=== PATIENT | male | born 1950 | race Caucasian/White ===

== ENCOUNTER 2017-05-03 11:49 | Observation (INO) | payer OTHER ==
[~2017-05-03] VITALS: Ht 162.6 cm; Wt 68.0 kg
[~2017-05-03 11:49] MED LIST: ASPI81TA82 PO; CARV6.25 PO; CELE40TA PO; CLON.5 PO; MOBI7.5T PO; PRIL40CA PO; SIMV10TA PO
[2017-05-03 11:54] VITALS: BP 190/75; PULSE 78; RESP 16; TEMP 98.4; O2SAT 98
[2017-05-03 12:20] LABS: AUTOMATED NEUTROPHIL # 7.4 TH/MM3 (1.8-7.7); BASOPHIL # 0.1 TH/MM3 (0-0.2); EOSINOPHIL # 0.1 TH/MM3 (0-0.4); EOSINOPHIL % 1.2 % (0.0-4.0); HEMATOCRIT 38.2 % (39.0-51.0); HEMOGLOBIN 13.1 GM/DL (13.0-17.0); LYMPH % 17.7 % (9.0-44.0); LYMPHOCYTE # 1.8 TH/MM3 (1.0-4.8); MEAN CELL VOLUME 82.3 FL (80.0-100.0); MEAN CORPUSCULAR HEMOGLOBIN 28.3 PG (27.0-34.0); MEAN CORPUSCULAR HGB CONC 34.4 % (32.0-36.0); MEAN PLATELET VOLUME 7.3 FL (7.0-11.0); MONO % 8.5 % (0.0-8.0); MONOCYTE # 0.9 TH/MM3 (0-0.9); NEUT % 71.6 % (16.0-70.0); PLATELET COUNT 230 TH/MM3 (150-450); RED BLOOD COUNT 4.64 MIL/MM3 (4.50-5.90); RED CELL DISTRIBUTION WIDTH 15.2 % (11.6-17.2); WHITE BLOOD COUNT 10.4 TH/MM3 (4.0-11.0)
[2017-05-03 12:30] LABS: PROTHROMBIN TIME - PATIENT 10.6 SEC (9.8-11.6)
[2017-05-03] MEDS ORDERED: METH750T PO (12:36)
[2017-05-03] MEDS ORDERED: CALCTAB19 PO (12:36)
[2017-05-03] MEDS ORDERED: BUSP5TAB PO (12:36)
[2017-05-03] MEDS ORDERED: CARV3.12 PO (12:36)
[2017-05-03] MEDS ORDERED: OMEP20TA93 PO (12:36)
[2017-05-03] MEDS ORDERED: ATOR40TA16 PO (12:36)
[2017-05-03] MEDS ORDERED: ESCI10TA PO (12:36)
[2017-05-03] MEDS ORDERED: ACET300T2 PO (12:36)
[2017-05-03] MEDS ORDERED: ASPI81CH6 CHEW (12:36)
[2017-05-03] MEDS ORDERED: SERT-129 PO (12:36)
[2017-05-03] MEDS ORDERED: LISI10TA3 PO (12:36)
[2017-05-03] MEDS ORDERED: LORA0.5T PO (12:36)
[2017-05-03] MEDS ORDERED: FERR325T18 PO (12:36)
[2017-05-03] MEDS ORDERED: RANI150T PO (12:36)
[2017-05-03 12:37] LABS: BICARBONATE 26.6 MEQ/L (21.0-32.0); BLOOD UREA NITROGEN 16 MG/DL (7-18); CALCIUM 9.3 MG/DL (8.5-10.1); CHLORIDE 98 MEQ/L (98-107); CREATININE 1.32 MG/DL (0.60-1.30); GLOMERULAR FILTRATION RATE 54 ML/MIN (>89); GLUCOSE,RANDOM 103 MG/DL (74-106); SODIUM (NA) 133 MEQ/L (136-145)
[2017-05-03 12:41] LABS: TROPONIN I LESS THAN 0.02 NG/ML (0.02-0.05)
--- NOTE | 2017-05-03 12:48 | RADRPT ---
EXAM DATE/TIME: 05/03/2017 12:21 [place] COMPARISON: CHEST PA & LAT, June 01, 2015, 12:20. INDICATIONS : Left sided chest pain. MEDICAL HISTORY : Hiatal hernia. Cardiovascular disease. Gastroesophageal reflux disease. SURGICAL HISTORY : Cardiac stent. ENCOUNTER: Initial ACUITY: 1 day PAIN SCORE: 3/10 LOCATION: Left chest FINDINGS: Portable AP view of the chest demonstrates a normal-sized cardiac silhouette. The lungs demonstrate n o definite effusion, consolidation, or pneumothorax. The bones and soft tissues demonstrate no acute finding. EKG lines overlie the patient. CONCLUSION: No acute cardiopulmonary abnormality is identified. Baldev Woods MD on May 03, 2017 at 12:46 Board Certified Radiologist. This report was verified electronically.
--- NOTE | 2017-05-03 13:02 | PD ---
HPI Chief Complaint: Chest Pain Time Seen by Provider: 12:12 Travel History International Travel<30 days: No Contact w/Intl Traveler<30days: No Traveled to known affect area: No History of Present Illness HPI The patient is a 66-year-old male who presents emergency department for chest pain from his physician's office. The patient has a history of coronary artery disease, had a stent placed in the LAD approximately 11 years ago. The patient is followed at the [place] [facility] as well as by his primary physician, does not have a local adjuster arbitrator. However, the patient states she just was placed by Dr. Santiago. The patient does have a history of hypertension, hyperlipidemia, CAD, and remote tobacco use, however, quit in 1980. He denies any history of diabetes. Over the last 2 days he notes intermittent left-sided chest pain which only lasts several seconds, sharp, intermittent, not associated with any shortness of breath. He denies any nausea, vomiting, or diaphoresis. However, the patient states she was chest pain-free when he had his stents placed 11 years ago. PFSH Past Medical History Hx Anticoagulant Therapy: Yes (ASA 81MG) Anemia: Yes Arthritis: No Autoimmune Disease: No Blood Disorders: No Anxiety: Yes Depression: Yes Heart Rhythm Problems: No Cancer: Yes (SMALL BOWEL) Cardiac Catheterization: Yes Cardiovascular Problems: Yes High Cholesterol: Yes Chemotherapy: No Chest Pain: No Congestive Heart Failure: No Cerebrovascular Accident: No Coronary Artery Disease: Yes Diminished Hearing: No Endocrine: No Gastrointestinal Disorders: Yes GERD: Yes Glaucoma: No Genitourinary: No Headaches: Yes Hepatitis: No Hiatal Hernia: Yes Hypertension: Yes Inguinal Hernia: Yes Musculoskeletal: Yes (L SHOULDER TEAR AND BURSITIS) Neurologic: Yes Psychiatric: No Respiratory: No Myocardial Infarction: No Radiation Therapy: No Sickle Cell Disease: No Ulcer: Yes (DUODENAL ULCER) Tetanus Vaccination: Unknown Influenza Vaccination: Yes Past Surgical History Abdominal Surgery: Yes (HERNIA REPAIR -RIGHT) AICD: No Appendectomy: Yes () Cardiac Surgery: No Cholecystectomy: Yes () Coronary Stent: Yes (05/29/07-WIDOWMAKER) Ear Surgery: No Endocrine Surgery: No Eye Surgery: No Genitourinary Surgery: No Gynecologic Surgery: No Neurologic Surgery: No Oral Surgery: Yes (JAW WIRED) Pacemaker: No Thoracic Surgery: No Other Surgery: Yes (PARTIAL SMALL INTESTINE REMOVED) Social History Alcohol Use: No Tobacco Use: No Substance Use: No Allergies-Medications (Allergen,Severity, Reaction): Coded Allergies: No Known Allergies (Verified , 06/01/15) Reported Meds & Prescriptions Reported Meds & Active Scripts Active Reported Buspirone (Buspirone HCl) 5 Mg Tab 5 Mg PO BID Methocarbamol 750 Mg Tab 750 Mg PO Q8HR Lisinopril 10 Mg Tab 10 Mg PO DAILY Ferrous Sulfate 325 Mg (65 Mg Iron) Tablet 325 Mg PO BIDPC Carvedilol 3.125 Mg Tab 3.125 Mg PO BID Atorvastatin (Atorvastatin Calcium) 40 Mg Tab 40 Mg PO HS Aspirin Low Dose (Aspirin) 81 Mg Chew 81 Mg CHEW DAILY Acetaminophen-Codeine 300-30 mg Tab 1 Tab PO Q8HR Lorazepam 0.5 Mg Tab 0.5 Mg PO BID PRN Sertraline (Sertraline HCl) 100 Mg Tab 200 Mg PO DAILY Escitalopram (Escitalopram Oxalate) 10 Mg Tab 10 Mg PO DAILY Omeprazole 20 Mg Tab 20 Mg PO BID Ranitidine (Ranitidine HCl) 150 Mg Tab 150 Mg PO DAILY Calcium 600+D 200 (Calcium Carbonate-Vitamin D) 600-200 Mg-Unit Tab 1 Tab PO BID Review of Systems Except as stated in HPI: all other systems reviewed are Neg General / Constitutional: No: Fever HENT: No: Lightheadedness Cardiovascular: Positive: Chest Pain or Discomfort, No: Dyspnea on exertion Respiratory: No: Shortness of Breath Gastrointestinal: No: Nausea, Vomiting, Abdominal Pain Musculoskeletal: No: Weakness, Edema Neurologic: No: Dizziness Physical Exam Narrative GENERAL: Awake, alert, pleasant 66-year-old male who appears his stated age and is in no acute respiratory distress. SKIN: Focused skin assessment warm/dry. HEAD: Atraumatic. Normocephalic. EYES: Pupils equal and round. No scleral icterus. No injection or drainage. ENT: No nasal bleeding or discharge. Mucous membranes pink and moist. NECK: Trachea midline. No JVD. CARDIOVASCULAR: Regular rate and rhythm. No murmur appreciated. RESPIRATORY: No accessory muscle use. Clear to auscultation. Breath sounds equal bilaterally. GASTROINTESTINAL: Abdomen soft, non-tender, nondistended. No rebound tenderness. No guarding or rigidity. MUSCULOSKELETAL: No obvious deformities. No clubbing. No cyanosis. No edema. NEUROLOGICAL: Awake and alert. No obvious cranial nerve deficits. Motor grossly within normal limits. Normal speech. Nonfocal. PSYCHIATRIC: Appropriate mood and affect; insight and judgment normal. Data Data Last Documented VS Vital Signs Date Time Temp Pulse Resp B/P (MAP) Pulse Ox O2 Delivery O2 Flow Rate FiO2 05/03/17 12:08 80 98 Room Air 05/03/17 11:54 98.4 16 190/75 (113) Orders Orders Electrocardiogram (05/03/17 11:53) Complete Blood Count With Diff (05/03/17 11:53) Basic Metabolic Panel (Bmp) (05/03/17 11:53) Ckmb (Isoenzyme) Profile (05/03/17 11:53) Troponin I (05/03/17 11:53) Prothrombin Time / Inr (Pt) (05/03/17 11:53) Act Partial Throm Time (Ptt) (05/03/17 11:53) Chest, Single Ap (05/03/17 ) CKMB (05/03/17 12:00) CKMB% (05/03/17 12:00) Aspirin Chew (Aspirin Chew) (05/03/17 13:15) Labs Laboratory Tests Test 05/03/17 12:00 White Blood Count 10.4 TH/MM3 Red Blood Count 4.64 MIL/MM3 Hemoglobin 13.1 GM/DL Hematocrit 38.2 % Mean Corpuscular Volume 82.3 FL Mean Corpuscular Hemoglobin 28.3 PG Mean Corpuscular Hemoglobin Concent 34.4 % Red Cell Distribution Width 15.2 % Platelet Count 230 TH/MM3 Mean Platelet Volume 7.3 FL Neutrophils (%) (Auto) 71.6 % Lymphocytes (%) (Auto) 17.7 % Monocytes (%) (Auto) 8.5 % Eosinophils (%) (Auto) 1.2 % Basophils (%) (Auto) 1.0 % Neutrophils # (Auto) 7.4 TH/MM3 Lymphocytes # (Auto) 1.8 TH/MM3 Monocytes # (Auto) 0.9 TH/MM3 Eosinophils # (Auto) 0.1 TH/MM3 Basophils # (Auto) 0.1 TH/MM3 CBC Comment DIFF FINAL Differential Comment Prothrombin Time 10.6 SEC Prothromb Time International Ratio 1.0 RATIO Activated Partial Thromboplast Time 25.9 SEC Blood Urea Nitrogen 16 MG/DL Creatinine 1.32 MG/DL Random Glucose 103 MG/DL Calcium Level 9.3 MG/DL Sodium Level 133 MEQ/L Potassium Level 4.6 MEQ/L Chloride Level 98 MEQ/L Carbon Dioxide Level 26.6 MEQ/L Anion Gap 8 MEQ/L Estimat Glomerular Filtration Rate 54 ML/MIN Total Creatine Kinase 109 U/L Creatine Kinase MB 1.1 NG/ML Troponin I LESS THAN 0.02 NG/ML MDM Medical Decision Making Medical Screen Exam Complete: Yes Emergency Medical Condition: Yes Medical Record Reviewed: Yes Interpretation(s) EKG reveals sinus rhythm with a rate of 74. No ischemic changes or ectopy noted. Laboratory Tests Test 05/03/17 12:00 White Blood Count 10.4 TH/MM3 Red Blood Count 4.64 MIL/MM3 Hemoglobin 13.1 GM/DL Hematocrit 38.2 % Mean Corpuscular Volume 82.3 FL Mean Corpuscular Hemoglobin 28.3 PG Mean Corpuscular Hemoglobin Concent 34.4 % Red Cell Distribution Width 15.2 % Platelet Count 230 TH/MM3 Mean Platelet Volume 7.3 FL Neutrophils (%) (Auto) 71.6 % Lymphocytes (%) (Auto) 17.7 % Monocytes (%) (Auto) 8.5 % Eosinophils (%) (Auto) 1.2 % Basophils (%) (Auto) 1.0 % Neutrophils # (Auto) 7.4 TH/MM3 Lymphocytes # (Auto) 1.8 TH/MM3 Monocytes # (Auto) 0.9 TH/MM3 Eosinophils # (Auto) 0.1 TH/MM3 Basophils # (Auto) 0.1 TH/MM3 CBC Comment DIFF FINAL Differential Comment Prothrombin Time 10.6 SEC Prothromb Time International Ratio 1.0 RATIO Activated Partial Thromboplast Time 25.9 SEC Blood Urea Nitrogen 16 MG/DL Creatinine 1.32 MG/DL Random Glucose 103 MG/DL Calcium Level 9.3 MG/DL Sodium Level 133 MEQ/L Potassium Level 4.6 MEQ/L Chloride Level 98 MEQ/L Carbon Dioxide Level 26.6 MEQ/L Anion Gap 8 MEQ/L Estimat Glomerular Filtration Rate 54 ML/MIN Total Creatine Kinase 109 U/L Creatine Kinase MB 1.1 NG/ML Troponin I LESS THAN 0.02 NG/ML Differential Diagnosis Differential diagnosis includes acute coronary syndrome, STEMI, GERD, esophageal spasm, pleurisy, pneumonia, pulmonary embolism. Narrative Course IV was established, labs are drawn and sent, and the patient was placed on cardiac telemetry monitoring and continuous pulse oximetry monitoring. EKG was ordered and interpreted. Chest x-rays obtained. The patient did take 1 baby aspirin this morning, was administered another 162 mg of aspirin orally. Chest x-rays unremarkable. Initial troponin is negative. The patient does have multiple risk factors including hypertension, hyperlipidemia, age, and history of CAD with previous stent placement with atypical symptoms, he was asymptomatic but had elevated blood pressure at that time. Therefore, the patient will be 23 hour observation to the chest pain center for serial cardiac enzymes and further evaluation by cardiology. Physician Communication Physician Communication The patient will be 23 hour observation to the chest pain Center for serial cardiac enzymes and further evaluation by cardiology for possible stress test. Diagnosis Primary Impression: Chest pain Qualified Codes: R07.9 - Chest pain, unspecified Admitting Information Admitting Physician Requests: Observation Condition: Stable Oscar Mcknight MD May 03, 2017 13:02
[2017-05-03] MEDS ORDERED: ASPIRIN 81 MG CHEW TAB CHEW ONE (13:15)
[2017-05-03 13:41] VITALS: BP 131/90; PULSE 76; RESP 17; TEMP 97.8; O2SAT 98
--- NOTE | 2017-05-03 15:10 | HHI.HP ---
HPI Primary Care Physician [facility] Chief Complaint Chest pain History of Present Illness This is a 66-year-old male that presents to ED with history of hypertension and CAD with stent of LAD in 2007 with complaint of high blood pressure. Patient states his blood pressures been running high. He checked it the other day and it was 208. This concerned him. He went to the [facility] and was asked if he has any chest pain. He responded yes. He states that over the last 2 days he had 3 episodes of a sharp discomfort that lasts last a couple seconds at most. States that these chest discomforts are not similar to his symptoms prior to needing stent. He states that time he found his blood pressure be high. He went to the ER and the next thing he knew he was in the [facility]. Has not been following a leak inspector recently. His primary care is through the [facility]. Voices compliance of medications. Review of Systems General: Patient denies fevers, chills, and recent travel HEENT: Patient denies headache, sore throat, difficulty swallowing. Cardiovascular: Has the chest discomfort as mentioned above. Denies sensation of heart beating rapidly or irregularly. No syncope. Denies diaphoresis. Respiratory: Denies shortness of breath or inspirational chest discomfort. Denies coughing wheezing or hemoptysis. GI: Patient denies nausea, vomiting, diarrhea, abdominal pain, bloody stools. Musculoskeletal: Patient denies joint pain or edema. Denies calf pain or edema. Neurovascular: Patient denies numbness, tingling, weakness in extremities. Denies headache. Endocrine: Denies polyuria and polydipsia. Hematologic: Denies easy bruising. Skin: Denies rash or itching. Past Family Social History Allergies: Coded Allergies: No Known Allergies (Verified , 06/01/15) Past Medical History Hypertension hyperlipidemia and CAD. He has a stent of LAD in 2007. Denies diabetes. Past Surgical History Cardiac catheterization with stenting 2007. Hernia repair. Appendectomy. Surgery for small bowel obstruction. Mandibular surgery. Reported Medications Reported Meds & Active Scripts Active Reported Buspirone (Buspirone HCl) 5 Mg Tab 5 Mg PO BID Methocarbamol 750 Mg Tab 750 Mg PO Q8HR Lisinopril 10 Mg Tab 10 Mg PO DAILY Ferrous Sulfate 325 Mg (65 Mg Iron) Tablet 325 Mg PO BIDPC Carvedilol 3.125 Mg Tab 3.125 Mg PO BID Atorvastatin (Atorvastatin Calcium) 40 Mg Tab 40 Mg PO HS Aspirin Low Dose (Aspirin) 81 Mg Chew 81 Mg CHEW DAILY Acetaminophen-Codeine 300-30 mg Tab 1 Tab PO Q8HR Lorazepam 0.5 Mg Tab 0.5 Mg PO BID PRN Sertraline (Sertraline HCl) 100 Mg Tab 200 Mg PO DAILY Escitalopram (Escitalopram Oxalate) 10 Mg Tab 10 Mg PO DAILY Omeprazole 20 Mg Tab 20 Mg PO BID Ranitidine (Ranitidine HCl) 150 Mg Tab 150 Mg PO DAILY Calcium 600+D 200 (Calcium Carbonate-Vitamin D) 600-200 Mg-Unit Tab 1 Tab PO BID Family History Denies family history of CAD. Social History Quit smoking in 1980. Has had no alcohol 25 years. Denies illicit drugs. Physical Exam Vital Signs Vital Signs Date Time Temp Pulse Resp B/P (MAP) Pulse Ox O2 Delivery O2 Flow Rate FiO2 05/03/17 13:41 97.8 76 17 131/90 (104) 98 Room Air 05/03/17 12:08 80 98 Room Air 05/03/17 11:54 98.4 78 16 190/75 (113) 98 Physical Exam GENERAL: This is a well-nourished, well-developed patient, in no apparent distress. Patient speaks in clear complete sentences. Patient is pleasant. HEENT: Head is atraumatic and normocephalic. Neck is supple without lymphadenopathy and trachea is midline. No JVD or carotid bruits. CARDIOVASCULAR: Regular rate and rhythm without murmurs, gallops, or rubs. RESPIRATORY: Clear to auscultation. Breath sounds equal bilaterally. No wheezes , rales, or rhonchi. Chest wall is nontender. No use of accessory muscles. GASTROINTESTINAL: Abdomen is nontender, nondistended. Abdomen soft. No obvious pulsatile mass or bruit. No CVA tenderness. Strong femoral pulses bilaterally. Normal bowel sounds in all quadrants. MUSCULOSKELETAL: Patient is moving upper and lower extremities freely. No calf tenderness or edema, no Homans sign. Strong pulses in upper and lower extremities. NEUROLOGICAL: Patient is alert and oriented. Cranial nerves 2-12 are grossly intact. No focal deficits and speech is clear. SKIN: No rash and turgor is normal. Laboratory Laboratory Tests Test 05/03/17 12:00 White Blood Count 10.4 Red Blood Count 4.64 Hemoglobin 13.1 Hematocrit 38.2 Mean Corpuscular Volume 82.3 Mean Corpuscular Hemoglobin 28.3 Mean Corpuscular Hemoglobin Concent 34.4 Red Cell Distribution Width 15.2 Platelet Count 230 Mean Platelet Volume 7.3 Neutrophils (%) (Auto) 71.6 Lymphocytes (%) (Auto) 17.7 Monocytes (%) (Auto) 8.5 Eosinophils (%) (Auto) 1.2 Basophils (%) (Auto) 1.0 Neutrophils # (Auto) 7.4 Lymphocytes # (Auto) 1.8 Monocytes # (Auto) 0.9 Eosinophils # (Auto) 0.1 Basophils # (Auto) 0.1 CBC Comment DIFF FINAL Differential Comment Prothrombin Time 10.6 Prothromb Time International Ratio 1.0 Activated Partial Thromboplast Time 25.9 Blood Urea Nitrogen 16 Creatinine 1.32 Random Glucose 103 Calcium Level 9.3 Sodium Level 133 Potassium Level 4.6 Chloride Level 98 Carbon Dioxide Level 26.6 Anion Gap 8 Estimat Glomerular Filtration Rate 54 Total Creatine Kinase 109 Creatine Kinase MB 1.1 Troponin I LESS THAN 0.02 Result Diagram: 05/03/17 1200 05/03/17 1200 Imaging Last 48 hours Impressions Chest X-Ray 05/03/17 0000 Signed Impressions: Service Date/Time: Wednesday, May 03, 2017 12:21 - CONCLUSION: No acute cardiopulmonary abnormality is identified. Baldev Woods MD Course Initial EKG is sinus rhythm rate of [address] segment depressions or elevations. Caprini VTE Risk Assessment Caprini VTE Risk Assessment: Mod/High Risk (score >= 2) Caprini Risk Assessment Model Point Value = 1 Point Value = 2 Point Value = 3 Point Value = 5 Age 41-60 Minor surgery BMI > 25 kg/m2 Swollen legs Varicose veins or History of unexplained or recurrent spontaneous Oral contraceptives or hormone replacement Sepsis (< 1 month) Serious lung disease, including pneumonia (< 1 month) Abnormal pulmonary function Acute myocardial infarction Congestive heart failure (< 1 month) History of inflammatory bowel disease Medical patient at bed rest Age 61-74 Arthroscopic surgery Major open surgery (> 45 min) Laparoscopic surgery (> 45 min) Malignancy Confined to bed (> 72 hours) Immobilizing plaster cast Central venous access Age >= 75 History of VTE Family history of VTE Factor V Leiden Prothrombin [id number] Lupus anticoagulant Anticardiolipin antibodies Elevated serum homocysteine Heparin-induced thrombocytopenia Other congenital or acquired thrombophilia Stroke (< 1 month) Elective arthroplasty Hip, pelvis, or leg fracture Acute spinal cord injury (< 1 month) Prophylaxis Regimen Total Risk Factor Score Risk Level Prophylaxis Regimen 0-1 Low Early ambulation 2 Moderate Order ONE of the following: *Sequential Compression Device (SCD) *Heparin 5000 units SQ BID 3-4 Higher Order ONE of the following medications: *Heparin 5000 units SQ TID *Enoxaparin/Lovenox 40 mg SQ daily (WT < 150 kg, CrCl > 30 mL/min) *Enoxaparin/Lovenox 30 mg SQ daily (WT < 150 kg, CrCl > 10-29 mL/min) *Enoxaparin/Lovenox 30 mg SQ BID (WT < 150 kg, CrCl > 30 mL/min) AND/OR *Sequential Compression Device (SCD) 5 or more Highest Order ONE of the following medications: *Heparin 5000 units SQ TID (Preferred with Epidurals) *Enoxaparin/Lovenox 40 mg SQ daily (WT < 150 kg, CrCl > 30 mL/min) *Enoxaparin/Lovenox 30 mg SQ daily (WT < 150 kg, CrCl > 10-29 mL/min) *Enoxaparin/Lovenox 30 mg SQ BID (WT < 150 kg, CrCl > 30 mL/min) AND *Sequential Compression Device (SCD) Assessment and Plan Assessment and Plan * Chest pain: Patient's symptoms are atypical. He will continue to have serial cardiac enzymes and EKGs were ruling out purposes. He will be seen by Dr. Dodd of cardiology in the chest pain center. Likely will proceed with a Obey protocol ETT in the morning if he rules out. Patient to be discharged home if the stress test is nonischemic with instructions to follow-up with PCP and cardiology. * Hypertension: Resume medications. Likely change lisinopril from 10 mg daily to twice daily. * Hyperlipidemia: Continue medication. Patient is stable at this time. He is agreeable to this plan. Anderson Rai May 03, 2017 15:10
[2017-05-03] MEDS ORDERED: ONDANSETRON HCL 4 MG/2 ML VIAL IV PUSH PRN (15:15)
[2017-05-03] MEDS ORDERED: ACETAMINOPHEN/HYDROcodone 325 MG/7.5 MG TAB PO PRN (15:15)
[2017-05-03] MEDS ORDERED: ALPRAZolam 0.25 MG TAB PO PRN (15:15)
[2017-05-03] MEDS ORDERED: ACETAMINOPHEN 500 MG CPLT PO PRN (15:15)
[2017-05-03 16:19] LABS: TROPONIN I LESS THAN 0.02 NG/ML (0.02-0.05)
[2017-05-03 16:45] VITALS: BP 135/65; PULSE 77; RESP 20; TEMP 98; O2SAT 96
[2017-05-03] MEDS ORDERED: cloNIDine HCL 0.1 MG TAB PO PRN (17:30)
--- NOTE | 2017-05-03 17:34 | EKG ---
Date Performed: 05/03/2017 Time Performed: 15:36:01 PTAGE: 66 years EKG: Sinus rhythm POSSIBLE LEFT ATRIAL ENLARGEMENT BORDERLINE LEFT AXIS DEVIATION BORDERLINE ECG Since PREVIOUS TRACING , no significant change noted DOCTOR: Sugey Dodd Interpretating Date/Time 05/03/2017 17:32:23
[2017-05-03] MEDS: PANTOPRAZOLE SOD 40 MG DELAYED RELEASE TAB PO SCH (18:21)
[2017-05-03 18:48] LABS: TROPONIN I LESS THAN 0.02 NG/ML (0.02-0.05)
[2017-05-03 20:00] VITALS: O2SAT 94
[2017-05-03 21:20] VITALS: BP 115/63; PULSE 74; RESP 18; TEMP 98.6; O2SAT 93
[2017-05-03 23:00] VITALS: PULSE 72
[2017-05-04 00:10] VITALS: BP 135/76; PULSE 83; RESP 18; TEMP 98.6; O2SAT 93
[2017-05-04 04:31] VITALS: PULSE 66
[2017-05-04] MEDS ORDERED: ALUMINUM/MAGNESIUM/SIMETH 30 ML CUP PO ONE (07:45)
[2017-05-04] MEDS: PANTOPRAZOLE SOD 40 MG DELAYED RELEASE TAB PO SCH (07:55)
[2017-05-04 08:00] VITALS: BP 140/78; PULSE 88; RESP 20; TEMP 98.6; O2SAT 93
[2017-05-04] MEDS ORDERED: ASPIRIN 325 MG TAB PO SCH (09:00)
[2017-05-04] MEDS ORDERED: LISI10TA3 PO (10:07)
--- NOTE | 2017-05-04 10:08 | HHI.DCPOC ---
Discharge Care Plan Diagnosis: (1) Chest pain (2) CAD (coronary artery disease) (3) H/O heart artery stent (4) Hypertension (5) Hyperlipidemia Goals to Promote Your Health * To prevent worsening of your condition and complications * To maintain your health at the optimal level Directions to Meet Your Goals Take your medications as prescribed Follow your dietary instruction Follow activity as directed Keep your appointments as scheduled Take your immunizations and boosters as scheduled If your symptoms worsen call your PCP, if no PCP go to Urgent Care Center or Emergency Room Smoking is Dangerous to Your Health. Avoid second hand smoke Call the 24-hour hour crisis hotline for domestic abuse at Anderson Rai May 04, 2017 10:07
--- NOTE | 2017-05-04 11:02 | TR ---
Date Performed: 05/04/2017 Time Performed: 09:01:46 DOCTOR: Sean Jin DRUG LIST: CLINICAL HISTORY: REASON FOR TEST: Chest pain REASON FOR ENDING: OBSERVATION: CONCLUSION: LINDSAY PROTOCOL. NO CP. TEST STOPPED AFTER EXCEEDING GOAL HR SECONDARY TO SOB AND LEG FATIGUE.Maximum JI=269 % Max HR Achieved=88.0% Maximum PK=294/88 Total Exercise Time=6:00 COMMENTS: Conclusion: Normal treadmill exercise. No evidence of ischemia.
--- NOTE | 2017-05-04 12:02 | EKG ---
Date Performed: 05/03/2017 Time Performed: 17:58:45 PTAGE: 66 years EKG: Sinus rhythm NORMAL ECG PREVIOUS TRACING : 05/03/2017 15.36 Since previous tracing, no significant change noted DOCTOR: Sean Jin Interpretating Date/Time 05/04/2017 12:01:36
--- NOTE | 2017-05-04 12:04 | EKG ---
Date Performed: 05/03/2017 Time Performed: 12:04:14 PTAGE: 66 years EKG: Sinus rhythm NORMAL ECG Since PREVIOUS TRACING , no significant change noted DOCTOR: Sean Jin Interpretating Date/Time 05/04/2017 12:04:19
== END 2017-05-04 11:26 | disposition home or self-care (01) ==
LOC: NEPE 11:49 → NEDH 13:28 → NEPGCP 16:34
PROVIDERS: ADMIT Internal Medicine Interventional Cardiology; ATTEND Internal Medicine Interventional Cardiology
DX: R07.89 Other chest pain (principal); I10 Essential (primary) hypertension; E78.00 Pure hypercholesterolemia, unspecified; I25.10 Atherosclerotic heart disease of native coronary artery without angina pectoris; K21.9 Gastro-esophageal reflux disease without esophagitis; F41.9 Anxiety disorder, unspecified; F32.9 Major depressive disorder, single episode, unspecified; Z95.5 Presence of coronary angioplasty implant and graft; Z87.891 Personal history of nicotine dependence; Z79.899 Other long term (current) drug therapy; Z79.82 Long term (current) use of aspirin
CPT/HCPCS: 71045; 80048; 82550; 82552; 84484; 85025; 85610; 85730; 93005; 93017; 99285; G0378